=== PATIENT | female | born 1985 | race Caucasian/White ===

== ENCOUNTER → 2016-09-16 | Outpatient (REF) | payer OTHER ==
[~2016-09-16] MED LIST: ACET50TA PO; ADVI200T PO; IBUP60TA PO; MAGN500C PO; PREN27TA3 PO; TYLE167L PO; VALT500T PO
== END ==
LOC: M LAB REF 17:07
PROVIDERS: ATTEND Advanced Practice Midwife
DX: A60.04 Herpesviral vulvovaginitis (principal)

== ENCOUNTER → 2017-01-08 | Outpatient (REF) | payer OTHER, MEDICAID | LOC: M LAB REF 09:00 | PROVIDERS: ATTEND Physician Assistant | DX: N89.8 Other specified noninflammatory disorders of vagina (principal) ==

== ENCOUNTER → 2017-06-09 | Outpatient (CLI) | payer OTHER | LOC: M RAD 13:11 | DX: Z34.81 Encounter for supervision of other normal pregnancy, first trimester (principal); Z3A.01 Less than 8 weeks gestation of pregnancy | CPT/HCPCS: 76801 ==

== ENCOUNTER 2017-07-04 17:44 | Emergency (ER) | payer OTHER, MEDICAID ==
[2017-07-04] MEDS: KETOROLAC TROMETHAMINE 10 MG TAB PO (19:15)
== END 2017-07-04 20:00 | disposition home or self-care (01) ==
LOC: M ED 17:44
DX: S72.491A Other fracture of lower end of right femur, initial encounter for closed fracture (principal); W00.0XXA Fall on same level due to ice and snow, initial encounter; Y92.018 Other place in single-family (private) house as the place of occurrence of the external cause; F41.9 Anxiety disorder, unspecified; F33.9 Major depressive disorder, recurrent, unspecified; F17.210 Nicotine dependence, cigarettes, uncomplicated
CPT/HCPCS: 73610

== ENCOUNTER 2017-07-09 17:59 | Emergency (ER) | payer OTHER, MEDICAID ==
[2017-07-09] MEDS: ONDANSETRON 4 MG ORAL DISINTEGRATING TAB (S0181) PO (20:47)
[2017-07-09] MEDS: HYDROmorphone 2 MG TAB PO (20:47)
== END 2017-07-09 21:45 | disposition home or self-care (01) ==
LOC: M ED 17:59
DX: S82.891A Other fracture of right lower leg, initial encounter for closed fracture (principal); X58.XXXA Exposure to other specified factors, initial encounter; Y92.89 Other specified places as the place of occurrence of the external cause; R11.0 Nausea; F41.9 Anxiety disorder, unspecified; F17.210 Nicotine dependence, cigarettes, uncomplicated
CPT/HCPCS: 99283

== ENCOUNTER 2017-07-15 12:35 | Emergency (ER) | payer OTHER, MEDICAID | END 2017-07-15 14:31 | disposition home or self-care (01) | LOC: M ED 12:35 | DX: F41.0 Panic disorder [episodic paroxysmal anxiety] (principal); F32.9 Major depressive disorder, single episode, unspecified; J30.2 Other seasonal allergic rhinitis; F17.200 Nicotine dependence, unspecified, uncomplicated; Z79.3 Long term (current) use of hormonal contraceptives | CPT/HCPCS: 99282 ==

== ENCOUNTER → 2017-11-07 | Outpatient (CLI) | payer OTHER ==
[2017-11-07 07:45] LABS: BASO % 0.5 % (0.0-1.0); EOS # 0.2 10^3/uL (0.0-0.50); HEMATOCRIT 42.3 % (36.0-47.0); HEMOGLOBIN 14.6 g/dl (12.0-15.5); IMMATURE GRANULOCYTE % 0.4 % (0-3.0); LYMPH # 3.4 10^3/uL (1.5-4.5); LYMPH % 42.2 % (24.0-44.0); MEAN CORPUSCULAR HEMOGLOBIN 31.3 pg (27.0-33.0); MEAN CORPUSCULAR HGB CONC 34.5 g/dl (32.0-36.5); MEAN CORPUSCULAR VOLUME 90.6 fl (80.0-96.0); MONO # 0.5 10^3/uL (0.0-0.8); MONO % 5.9 % (0.0-5.0); NEUTROPHILS # 3.9 10^3/uL (1.8-7.7); PLATELET COUNT, AUTOMATED 190 10^3/uL (150-450); RED BLOOD COUNT 4.67 10^6/uL (4.00-5.40); RED CELL DISTRIBUTION WIDTH 13.1 % (11.5-14.5); WHITE BLOOD COUNT 7.9 10^3/uL (4.0-10.0)
[2017-11-07 08:26] LABS: ALBUMIN 3.6 GM/DL (3.2-5.2); ALBUMIN/GLOBULIN RATIO 1.16 (1.00-1.93); ALKALINE PHOSPHATASE 59 U/L (45-117); ALT/SGPT 20 U/L (12-78); ANION GAP 7 MEQ/L (8-16); AST/SGOT 13 U/L (7-37); BILIRUBIN,TOTAL 0.7 MG/DL (0.2-1.0); BLOOD UREA NITROGEN 9 MG/DL (7-18); CALCIUM LEVEL 9.2 MG/DL (8.5-10.1); CARBON DIOXIDE LEVEL 28 MEQ/L (21-32); CHLORIDE LEVEL 109 MEQ/L (98-107); CHOLESTEROL LEVEL 166 MG/DL (<200); CHOLESTEROL RISK RATIO 4.048 (<5); CREATININE FOR GFR 0.84 MG/DL (0.55-1.30); FREE T4 0.81 NG/DL (0.76-1.46); GLOMERULAR FILTRATION RATE > 60.0 (>60); GLUCOSE, FASTING 93 MG/DL (70-100); HDL CHOLESTEROL 41 MG/DL (>40); NON-HDL-C 125 MG/DL; POTASSIUM SERUM 3.9 MEQ/L (3.5-5.1); SODIUM LEVEL 144 MEQ/L (136-145); TOTAL PROTEIN 6.7 GM/DL (6.4-8.2); TRIGLYCERIDES LEVEL 155 MG/DL (<150)
[2017-11-07 10:39] LABS: TOTAL T3 81.6 NG/DL (60.0-181.0)
[2017-11-07 11:19] LABS: HIV 1&2 SCREEN CENTAUR NEGATIVE (NEGATIVE)
[2017-11-07 11:32] LABS: ESTIMATED AVERAGE GLUCOSE 114 MG/DL (60-110); HEMOGLOBIN A1c 5.6 %
== END ==
LOC: M LAB 07:12
DX: Z13.29 Encounter for screening for other suspected endocrine disorder (principal); Z13.220 Encounter for screening for lipoid disorders; R61 Generalized hyperhidrosis
CPT/HCPCS: 84443

== ENCOUNTER → 2017-11-24 | Outpatient (REF) | payer OTHER, MEDICAID ==
[2017-11-25 11:11] LABS: THYROGLOBULIN ANTIBODY < 15.0 U/ML (<60.0)
[2017-11-25 11:11] LABS: THYROID PEROXIDASE ANTIBODY < 28.0 U/ML (<60.0)
[2017-11-26 09:13] LABS: THYROID STIMULATING IMMUNOGLOB <0.10 IU/L (0.00-0.55)
== END ==
LOC: M LAB REF 13:59
DX: E02 Subclinical iodine-deficiency hypothyroidism (principal)

== ENCOUNTER → 2018-01-11 | Outpatient (CLI) | payer OTHER | LOC: M LAB 06:01 | DX: E02 Subclinical iodine-deficiency hypothyroidism (principal) | CPT/HCPCS: 84443 ==

== ENCOUNTER → 2018-06-12 | Outpatient (REF) | payer OTHER, MEDICAID ==
[~2018-06-12] MED LIST changes: -ACET50TA PO; +DILA2TAB6 PO; +MAPA500T2 PO; +PERC5TAB12 PO; +VICO5TAB16 PO; +bcp's PO
== END ==
LOC: M LAB REF 18:02
PROVIDERS: ATTEND Nurse Practitioner Adult Health
DX: E02 Subclinical iodine-deficiency hypothyroidism (principal)

== ENCOUNTER 2018-06-21 13:03 | Emergency (ER) | payer MEDICAID, OTHER ==
[~2018-06-21] VITALS: Ht 175.3 cm; Wt 85.0 kg
[2018-06-21] MEDS ORDERED: LEVO25TA5 (13:09)
[2018-06-21] MEDS ORDERED: HYDR-3363 (13:09)
[2018-06-21] MEDS ORDERED: [UNRECOGNIZED DRUG - CODE] (13:09)
[2018-06-21] MEDS ORDERED: SERT25TA88 (13:09)
[2018-06-21] MEDS ORDERED: PERCOCET 5MG/325MG TAB PO ONE (13:45)
--- NOTE | 2018-06-21 13:54 | REP ---
Clinical: Trauma/fall. Technique: AP, lateral, bilateral oblique views of the right ankle. Comparison: 07/04/2017. Findings: Healed oblique fracture of the distal fibular metaphysis is identified. Overlying lateral swelling is appreciated. Subtle acute fractures at the base of the second and third metatarsal bones suggested. Impression: Lateral swelling. Old healed distal fibular fracture. Subtle acute fractures at the base of the second and third metatarsal bones cannot be excluded. Electronically Signed by Chava Dodd MD 06/21/2018 01:46 P
[2018-06-21] MEDS ORDERED: PERC5TAB12 PO (15:50)
[2018-06-21 16:02] VITALS: BP 120/60
== END 2018-06-21 16:18 | disposition home or self-care (01) ==
LOC: M ED 13:03
DX: S92.321A Displaced fracture of second metatarsal bone, right foot, initial encounter for closed fracture (principal); S92.331A Displaced fracture of third metatarsal bone, right foot, initial encounter for closed fracture; Z87.81 Personal history of (healed) traumatic fracture; W00.0XXA Fall on same level due to ice and snow, initial encounter; Y92.219 Unspecified school as the place of occurrence of the external cause; F32.9 Major depressive disorder, single episode, unspecified; F41.9 Anxiety disorder, unspecified; F17.210 Nicotine dependence, cigarettes, uncomplicated; J30.1 Allergic rhinitis due to pollen; Z79.899 Other long term (current) drug therapy

== ENCOUNTER 2018-08-07 21:14 | Emergency (ER) | payer OTHER, MEDICAID ==
[~2018-08-07] VITALS: Ht 175.3 cm; Wt 86.4 kg
[2018-08-07 21:14] VITALS: BP 143/75
[~2018-08-07 21:14] MED LIST changes: +HYDR-3363; +LEVO25TA5; +SERT25TA88; +[UNRECOGNIZED DRUG - CODE]
== END 2018-08-07 22:56 | disposition left against medical advice (07) ==
LOC: M ED 21:14
DX: F41.0 Panic disorder [episodic paroxysmal anxiety] (principal); Z53.21 Procedure and treatment not carried out due to patient leaving prior to being seen by health care provider

== ENCOUNTER → 2018-09-05 | Outpatient (REF) | payer OTHER, MEDICAID ==
[~2018-09-05] MED LIST changes: +IBUP600T42 PO; -IBUP60TA PO; -VICO5TAB16 PO; +VICO5TAB17 PO
[2018-09-05 19:57] LABS: ALT/SGPT 14 U/L (12-78); BILIRUBIN,TOTAL 0.4 MG/DL (0.2-1.0); BLOOD UREA NITROGEN 7 MG/DL (7-18); CALCIUM LEVEL 9.1 MG/DL (8.5-10.1); CARBON DIOXIDE LEVEL 26 MEQ/L (21-32); CHLORIDE LEVEL 109 MEQ/L (98-107); CREATININE FOR GFR 0.79 MG/DL (0.55-1.30); GLOMERULAR FILTRATION RATE > 60.0 (>60); GLUCOSE, FASTING 95 MG/DL (70-100); SODIUM LEVEL 140 MEQ/L (136-145)
[2018-09-05 20:05] LABS: TOTAL 25(OH) VITAMIN D 10.5 NG/ML (30.0-100.0)
== END ==
LOC: M LAB REF 17:40
PROVIDERS: ATTEND Nurse Practitioner Adult Health
DX: Z13.9 Encounter for screening, unspecified (principal)

== ENCOUNTER → 2018-11-02 | Outpatient (REF) | payer OTHER, MEDICAID ==
[2018-11-02 18:35] LABS: FREE T4 1.08 NG/DL (0.76-1.46); THYROID STIMULATING HORMONE 2.64 uIU/ML (0.358-3.740)
[2018-11-02 18:36] LABS: TOTAL 25(OH) VITAMIN D 23.6 NG/ML (30.0-100.0)
== END ==
LOC: M LAB REF 17:33
PROVIDERS: ATTEND Nurse Practitioner Adult Health
DX: E02 Subclinical iodine-deficiency hypothyroidism (principal); Z13.9 Encounter for screening, unspecified

== ENCOUNTER → 2019-01-24 | Outpatient (CLI) | payer OTHER ==
[~2019-01-24] MED LIST changes: +SERT25TA21; -SERT25TA88
--- NOTE | 2019-01-24 15:46 | REP ---
FIRST TRIMESTER ULTRASOUND: Real-time sonographic evaluation of the gravid uterus performed utilizing transabdominal technique. There is a single living intrauterine gestation. The estimated gestational age is 6 weeks 6 days based on crown rump length of 9 mm, EDC 09/13/2019. heart rate 133 beats per minute. There is no subchorionic hemorrhage. No maternal adnexal region abnormalities are seen. Electronically Signed by José Miguel Flores MD 01/24/2019 04:06 P
== END ==
LOC: M RAD 14:34
PROVIDERS: ATTEND Nurse Practitioner Family
DX: Z32.01 Encounter for pregnancy test, result positive (principal); Z3A.01 Less than 8 weeks gestation of pregnancy

== ENCOUNTER → 2019-04-15 | Outpatient (REF) | payer OTHER, MEDICAID | LOC: M LAB REF 09:57 | PROVIDERS: ATTEND Physician Assistant Medical | DX: M79.10 Myalgia, unspecified site (principal); R50.9 Fever, unspecified ==

== ENCOUNTER → 2019-04-20 | Outpatient (REF) | payer OTHER, MEDICAID ==
[2019-04-20 17:40] LABS: APPEARANCE, URINE CLOUDY (CLEAR); BACTERIA, URINE AUTO 2+ (NEGATIVE); BILIRUBIN, URINE AUTO NEGATIVE (NEGATIVE); BLOOD, URINE BLOOD 3+ (NEGATIVE); COLOR, URINE YELLOW (YELLOW); GLUCOSE, URINE (UA) AUTO NEGATIVE (NEGATIVE); KETONE, URINE AUTO NEGATIVE (NEGATIVE); LEUKOCYTE ESTERASE, URINE AUTO 3+ (NEGATIVE); NITRITE, URINE AUTO POSITIVE (NEGATIVE); PROTEIN, URINE AUTO 2+ mg/dL (NEGATIVE); RBC, URINE AUTO TNTC /HPF (0-3); SPECIFIC GRAVITY URINE AUTO 1.016 (1.002-1.035); SQUAMOUS EPITHELIAL CELL UR AU 8 /HPF (0-6); UROBILINOGEN, URINE AUTO 0.2 mg/dL (0.0-2.0); WBC, URINE AUTO TNTC /HPF (0-3)
== END ==
LOC: M LAB REF 16:24
PROVIDERS: ATTEND Physician Assistant Medical
DX: N39.0 Urinary tract infection, site not specified (principal)

== ENCOUNTER → 2019-12-11 | Outpatient (REF) | payer OTHER ==
[~2019-12-11] MED LIST changes: +BUSP10TA; +DESO1TAB26; -[UNRECOGNIZED DRUG - CODE]
== END ==
LOC: M LAB REF 10:30
PROVIDERS: ATTEND Physician Assistant Medical
DX: J02.9 Acute pharyngitis, unspecified (principal)

== ENCOUNTER → 2019-12-12 | Outpatient (REF) | payer OTHER | LOC: M LAB REF 21:24 | PROVIDERS: ATTEND Physician Assistant | DX: Z03.818 Encounter for observation for suspected exposure to other biological agents ruled out (principal); Z11.59 Encounter for screening for other viral diseases ==

== ENCOUNTER 2020-02-05 15:55 | Emergency (ER) | payer OTHER ==
[~2020-02-05] VITALS: Ht 175.3 cm; Wt 68.5 kg
[~2020-02-05 15:55] MED LIST changes: -BUSP10TA
[2020-02-05] MEDS ORDERED: BUSP10TA (16:03)
[2020-02-05] MEDS ORDERED: LIDOCAINE W/EPINEPHRINE 1% 20ML VIAL SC ONE (17:45)
[2020-02-05] MEDS ORDERED: ACETAMINOPHEN 500 MG TAB PO ONE (17:45)
[2020-02-05] MEDS ORDERED: ACETAMINOPHEN TAB 650MG DOSE (2X325MG) PO ONE (17:45)
[2020-02-05 18:39] VITALS: BP 137/62
== END 2020-02-05 18:52 | disposition home or self-care (01) ==
LOC: M ED 15:55
DX: S01.81XA Laceration without foreign body of other part of head, initial encounter (principal); W01.10XA Fall on same level from slipping, tripping and stumbling with subsequent striking against unspecified object, initial encounter; Y92.099 Unspecified place in other non-institutional residence as the place of occurrence of the external cause; Y93.89 Activity, other specified; Y99.9 Unspecified external cause status; F17.200 Nicotine dependence, unspecified, uncomplicated; Z79.3 Long term (current) use of hormonal contraceptives; Z79.899 Other long term (current) drug therapy; J30.2 Other seasonal allergic rhinitis

== ENCOUNTER 2020-03-12 11:54 | Emergency (ER) | payer OTHER, SELFPAY ==
[~2020-03-12] VITALS: Ht 175.3 cm; Wt 59.1 kg
[~2020-03-12 11:54] MED LIST changes: +BUSP10TA
[2020-03-12 12:48] LABS: HEMATOCRIT 41.2 % (36.0-47.0); HEMOGLOBIN 13.8 g/dl (12.0-15.5); MEAN CORPUSCULAR HEMOGLOBIN 31.4 pg (27.0-33.0); MEAN CORPUSCULAR HGB CONC 33.5 g/dl (32.0-36.5); MEAN CORPUSCULAR VOLUME 93.6 fl (80.0-96.0); PLATELET COUNT, AUTOMATED 215 10^3/uL (150-450); WHITE BLOOD COUNT 10.3 10^3/uL (4.0-10.0)
[2020-03-12 13:12] LABS: AMPHETAMINES LEVEL URINE NEGATIVE (NEGATIVE); BARBITURATES URINE NEGATIVE (NEGATIVE); BENZODIAZEPINES URINE NEGATIVE (NEGATIVE); CANNABINOIDS URINE POSITIVE (NEGATIVE); COCAINE METABOLITE URINE NEGATIVE (NEGATIVE); METHADONE URINE NEGATIVE (NEGATIVE); OPIATES URINE NEGATIVE (NEGATIVE); PHENCYCLIDINE URINE NEGATIVE (NEGATIVE)
[2020-03-12 13:13] LABS: HCG, SERUM QUALITATIVE NEGATIVE (NEGATIVE)
[2020-03-12 13:15] LABS: ACETAMINOPHEN LEVEL < 2.0 UG/ML (10.0-30.0); ALBUMIN 3.9 GM/DL (3.2-5.2); ALT/SGPT 84 U/L (12-78); BILIRUBIN,DIRECT 0.2 MG/DL (0.0-0.2); BILIRUBIN,TOTAL 0.8 MG/DL (0.2-1.0); BLOOD UREA NITROGEN 12 MG/DL (7-18); CALCIUM LEVEL 9.8 MG/DL (8.5-10.1); CARBON DIOXIDE LEVEL 29 MEQ/L (21-32); CHLORIDE LEVEL 106 MEQ/L (98-107); CREATININE FOR GFR 0.99 MG/DL (0.55-1.30); ETHYL ALCOHOL (ETHANOL) < 0.003 % (0.000-0.010); GLOMERULAR FILTRATION RATE > 60.0 (>60); GLUCOSE, FASTING 109 MG/DL (70-100); POTASSIUM SERUM 3.8 MEQ/L (3.5-5.1); SALICYLATE LEVEL 2.5 MG/DL (5.0-30.0); SODIUM LEVEL 142 MEQ/L (136-145); TOTAL PROTEIN 6.8 GM/DL (6.4-8.2)
[2020-03-12 14:20] VITALS: BP 125/74
== END 2020-03-12 14:21 | disposition home or self-care (01) ==
LOC: M ED 11:54
DX: F60.9 Personality disorder, unspecified (principal); F43.0 Acute stress reaction; F32.9 Major depressive disorder, single episode, unspecified; J30.2 Other seasonal allergic rhinitis; F17.200 Nicotine dependence, unspecified, uncomplicated; Z79.3 Long term (current) use of hormonal contraceptives; Z79.899 Other long term (current) drug therapy
CPT/HCPCS: 80048; 80076; 80307; 84443; 84703; 85027; 99283; G0480

== ENCOUNTER 2020-04-05 12:12 | Emergency (ER) | payer OTHER ==
[~2020-04-05] VITALS: Ht 175.3 cm; Wt 68.0 kg
[2020-04-05] MEDS ORDERED: VIEN1TAB PO (12:34)
[2020-04-05] MEDS ORDERED: IBUPROFEN 800 MG TAB PO ONE (12:45)
--- NOTE | 2020-04-05 13:24 | REP ---
INDICATION: trauma. COMPARISON: None. TECHNIQUE: 4.5 mm contiguous transaxial sections were obtained from the skull base to the cerebral convexities with thin cuts through the posterior fossa without the administration of intravenous contrast. FINDINGS: The ventricles and sulci are consistent with the patient's age. There are no extra-axial fluid collections. There is no mass effect. The deep cerebral white matter is consistent with the patient's age. The orbital and petrous structures, cerebellopontine angles, and posterior fossa are unremarkable. The sella turcica, cavernous, and paracavernous structures are essentially unremarkable. The visualized portions of the paranasal sinuses and mastoid air cells are clear. Images of the skull base show no gross abnormality. IMPRESSION: Essentially unremarkable CT examination of the brain. <Electronically signed by Torsten Frank > 04/05/20 [id number]
--- NOTE | 2020-04-05 13:27 | REP ---
INDICATION: trauma. COMPARISON: 06/14/2011 TECHNIQUE: Axial helical scanning with coronal and sagittal reconstructions. FINDINGS: There is no maxillofacial fracture. The paranasal sinuses are clear. There are bilateral monique bullosa. The cribriform plate and Natalee monica are intact. The ostiomeatal complexes are patent. There is no evidence of abnormal soft tissue swelling. IMPRESSION: No acute abnormality. <Electronically signed by Torsten Frank > 04/05/20 [id number]
--- NOTE | 2020-04-05 13:29 | REP ---
INDICATION: trauma. COMPARISON: None. FINDINGS: Right forearm: No acute fracture or destructive osseous lesion. Left forearm: There is a slightly oblique distal ulnar fracture. IMPRESSION: As above <Electronically signed by Torsten Frank > 04/05/20 [id number]
--- NOTE | 2020-04-05 13:31 | REP ---
INDICATION: trauma. COMPARISON: 05/10/2006 FINDINGS: The joint spaces are symmetric and relatively well maintained. There is no evidence of acute fracture or destructive osseous lesion. IMPRESSION: Negative hand. See the left forearm report. <Electronically signed by Torsten Frank > 04/05/20 [id number]
[2020-04-05] MEDS ORDERED: NORC1TAB7 PO (14:10)
[2020-04-05 14:22] VITALS: BP 119/75
== END 2020-04-05 14:23 | disposition home or self-care (01) ==
LOC: M ED 12:12
DX: S52.602A Unspecified fracture of lower end of left ulna, initial encounter for closed fracture (principal); Z04.81 Encounter for examination and observation of victim following forced sexual exploitation; W22.8XXA Striking against or struck by other objects, initial encounter; Y92.099 Unspecified place in other non-institutional residence as the place of occurrence of the external cause; Y93.9 Activity, unspecified; Y99.9 Unspecified external cause status; F41.9 Anxiety disorder, unspecified; F32.9 Major depressive disorder, single episode, unspecified; J30.1 Allergic rhinitis due to pollen; F17.200 Nicotine dependence, unspecified, uncomplicated; Z79.3 Long term (current) use of hormonal contraceptives; Z79.899 Other long term (current) drug therapy

== ENCOUNTER 2020-06-27 23:21 | Emergency (ER) | payer OTHER ==
[~2020-06-27 23:21] MED LIST changes: +NORC1TAB7 PO; +VIEN1TAB PO
[2020-06-27 23:43] VITALS: BP 129/83
[2020-06-28] MEDS ORDERED: BACITRACIN OINTMENT 30GM TUBE TOP STA (00:55)
[2020-06-28 01:34] LABS: HEMATOCRIT 44.7 % (36.0-47.0); HEMOGLOBIN 14.7 g/dl (12.0-15.5); MEAN CORPUSCULAR HEMOGLOBIN 31.4 pg (27.0-33.0); MEAN CORPUSCULAR HGB CONC 32.9 g/dl (32.0-36.5); MEAN CORPUSCULAR VOLUME 95.5 fl (80.0-96.0); PLATELET COUNT, AUTOMATED 219 10^3/uL (150-450); RED BLOOD COUNT 4.68 10^6/uL (4.00-5.40); WHITE BLOOD COUNT 7.7 10^3/uL (4.0-10.0)
[2020-06-28 02:00] LABS: AMPHETAMINES LEVEL URINE POSITIVE (NEGATIVE); BARBITURATES URINE NEGATIVE (NEGATIVE); BENZODIAZEPINES URINE NEGATIVE (NEGATIVE); CANNABINOIDS URINE NEGATIVE (NEGATIVE); COCAINE METABOLITE URINE NEGATIVE (NEGATIVE); METHADONE URINE NEGATIVE (NEGATIVE); OPIATES URINE NEGATIVE (NEGATIVE); PHENCYCLIDINE URINE NEGATIVE (NEGATIVE)
[2020-06-28 02:05] LABS: ACETAMINOPHEN LEVEL < 2.0 UG/ML (10.0-30.0); ALBUMIN 3.6 GM/DL (3.2-5.2); ALT/SGPT 18 U/L (12-78); BILIRUBIN,DIRECT < 0.1 MG/DL (0.0-0.2); BILIRUBIN,TOTAL 0.4 MG/DL (0.2-1.0); BLOOD UREA NITROGEN 10 MG/DL (7-18); CARBON DIOXIDE LEVEL 32 MEQ/L (21-32); CHLORIDE LEVEL 107 MEQ/L (98-107); CREATININE FOR GFR 0.94 MG/DL (0.55-1.30); ETHYL ALCOHOL (ETHANOL) < 0.003 % (0.000-0.010); GLOMERULAR FILTRATION RATE > 60.0 (>60); GLUCOSE, FASTING 99 MG/DL (70-100); POTASSIUM SERUM 3.9 MEQ/L (3.5-5.1); SALICYLATE LEVEL < 1.7 MG/DL (5.0-30.0); SODIUM LEVEL 144 MEQ/L (136-145); THYROID STIMULATING HORMONE 0.962 uIU/ML (0.358-3.740); TOTAL PROTEIN 6.5 GM/DL (6.4-8.2)
== END 2020-06-28 04:11 | disposition home or self-care (01) ==
LOC: M ED 23:21
DX: F43.0 Acute stress reaction (principal); F32.9 Major depressive disorder, single episode, unspecified; F41.9 Anxiety disorder, unspecified; F17.200 Nicotine dependence, unspecified, uncomplicated; J30.89 Other allergic rhinitis; Z79.3 Long term (current) use of hormonal contraceptives; Z79.899 Other long term (current) drug therapy

== ENCOUNTER 2021-05-14 00:29 | Inpatient (IN) | payer MEDICAID, OTHER ==
[2021-05-14 01:06] LABS: HEMATOCRIT 44.2 % (36.0-47.0); MEAN CORPUSCULAR HEMOGLOBIN 30.9 pg (27.0-33.0); MEAN CORPUSCULAR HGB CONC 33.9 g/dl (32.0-36.5); MEAN CORPUSCULAR VOLUME 91.1 fl (80.0-96.0); PLATELET COUNT, AUTOMATED 282 10^3/uL (150-450); RED BLOOD COUNT 4.85 10^6/uL (4.00-5.40); WHITE BLOOD COUNT 10.2 10^3/uL (4.0-10.0)
[2021-05-14 01:32] LABS: HCG, SERUM QUALITATIVE NEGATIVE (NEGATIVE)
[2021-05-14 01:38] LABS: ACETAMINOPHEN LEVEL < 2.0 UG/ML (10.0-30.0); ALT/SGPT 16 U/L (12-78); BILIRUBIN,DIRECT 0.2 MG/DL (0.0-0.2); BILIRUBIN,TOTAL 0.7 MG/DL (0.2-1.0); BLOOD UREA NITROGEN 7 MG/DL (7-18); CALCIUM LEVEL 9.2 MG/DL (8.5-10.1); CARBON DIOXIDE LEVEL 22 MEQ/L (21-32); CHLORIDE LEVEL 105 MEQ/L (98-107); CREATININE FOR GFR 1.23 MG/DL (0.55-1.30); ETHYL ALCOHOL (ETHANOL) < 0.003 % (0.000-0.010); GLOMERULAR FILTRATION RATE 53.2 (>60); GLUCOSE, FASTING 216 MG/DL (70-100); POTASSIUM SERUM 3.6 MEQ/L (3.5-5.1); SALICYLATE LEVEL 2.1 MG/DL (5.0-30.0); SODIUM LEVEL 139 MEQ/L (136-145); TOTAL PROTEIN 7.3 GM/DL (6.4-8.2)
[2021-05-14 03:58] LABS: AMPHETAMINES LEVEL URINE POSITIVE (NEGATIVE); BARBITURATES URINE NEGATIVE (NEGATIVE); BENZODIAZEPINES URINE NEGATIVE (NEGATIVE); CANNABINOIDS URINE NEGATIVE (NEGATIVE); COCAINE METABOLITE URINE NEGATIVE (NEGATIVE); METHADONE URINE NEGATIVE (NEGATIVE); OPIATES URINE NEGATIVE (NEGATIVE); PHENCYCLIDINE URINE NEGATIVE (NEGATIVE)
[2021-05-14 04:53] LABS: RSV AMPLIFICATION NEGATIVE (NEGATIVE)
[2021-05-14] MEDS ORDERED: LORazepam 1 MG TAB PO STA (06:22)
--- NOTE | 2021-05-14 06:50 | ECGEPIP ---
[facility] - ED Test Date: 2021-05-14 Pat Name: PELON GUTIERREZ Department: Room: - Gender: Female Final Inspector Balance Wheel: SOLE : 1985 Requested By: ALBERTO Pitt PA-C Order Number: [id number] Reading MD: Sherman Carlson Measurements Intervals [place] Rate: 94 P: 70 WV: 120 QRS: 75 QRSD: 92 T: 65 QT: 368 QTc: 460 Interpretive Statements Normal sinus rhythm Electronically Signed on 05-14-2021 6:49:47 EST by Sherman Carlson
[2021-05-14] MEDS ORDERED: busPIRone 10 MG TAB PO ONE (07:50)
[2021-05-14] MEDS ORDERED: HOME MED LIST COMPLETE! XX SCH (11:30)
[2021-05-14] MEDS ORDERED: MOM 30ML SUSPENSION UDC PO PRN (14:10)
[2021-05-14] MEDS ORDERED: OLANZapine 5 MG TAB PO PRN (14:10)
[2021-05-14] MEDS ORDERED: MAALOX 30 ML SUSP *UDC PO PRN (14:10)
[2021-05-14] MEDS ORDERED: ACETAMINOPHEN TAB 650MG DOSE (2X325MG) PO PRN (14:10)
[2021-05-14] MEDS ORDERED: OLANZapine ORAL DISINTEGRATING TAB 5MG PO PRN (19:45)
[2021-05-14] MEDS ORDERED: HALOPERIDOL 5MG/ML VIAL (J1630 PER 1) IM STA (20:54)
[2021-05-14] MEDS ORDERED: diphenhydrAMINE 50MG/ML VIAL (J1200) IM STA (20:54)
[2021-05-14] MEDS ORDERED: LORazepam 2 MG/ML VIAL IM STA (20:54)
[2021-05-14] MEDS ORDERED: diphenhydrAMINE 50MG/ML VIAL (J1200) As Ordered ONE (21:04)
[2021-05-14] MEDS ORDERED: LORazepam 2 MG/ML VIAL As Ordered ONE (21:05)
--- NOTE | 2021-05-14 21:27 | MHIR ---
General Date: May 14, 2021 Time Initiated: 21:15 Restraint Documentation Order/Evaluation FACE TO FACE: [Yes]. PHYSICIAN ASSESSMENT: [Patient verbally aggressive, unreorientable. Patient covid+ and not abiding quaranting, putting other staff and patients at risk]. REASON FOR RESTRAINT: Patient poses imminent danger of harming self or others: [Verbally aggressive, threatening staff]. DE-ESCALATION INTERVENTIONS ATTEMPTED BEFORE USE OF RESTRAINTS: [Verbal reorientation by several different staff members] [MECHANICAL AND/OR CHEMICAL] RESTRAINTS USED: [Both]. LENGTH OF TIME ORDERED IN RESTRAINTS: [240] minutes. WHEN TO DISCONTINUE RESTRAINTS: [When the patient is no longer a threat to themselves or others]. Post evaluation of restraint due in 24 hours. SARWAT FAULKNER May 14, 2021 21:27
[2021-05-14 21:30] VITALS: BP 131/64
[2021-05-15] MEDS: OLANZapine 5 MG TAB PO SCH ×2 (09:00→21:14)
[2021-05-15] MEDS ORDERED: hydrOXYzine 25 MG TAB PO PRN (11:15)
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
--- NOTE | 2021-05-15 11:22 | MHPR ---
General Date: May 15, 2021 Time: 09:50 Post-Restraint Evaluation THE OUTCOME OF THE RESTRAINT: Patient is not longer a danger to herself and other, she is resting EFFECTIVENESS OF THE RESTRAINT: Mechanical and/or chemical: Positive ANY EVIDENCE THAT THE PATIENT WAS AFFECTED EMOTIONALLY: Patient is resting, and does not appear to have any emotional decline due to administration of emergency medications ANY NEED FOR COUNSELING/ASSISTANCE: None, but also patient is unwilling to engaged in any dialogue, exhibits antisocial behaviors CHANGES IN TREATMENT PLAN: None RECOMMENDATIONS FOR FUTURE INCIDENTS: offer of oral medications expeditiously, offer of nutrition and hydration, offer of patient's safety plan with regards to aggression and violent behaviors MARINA THURSTON NP May 15, 2021 11:22
--- NOTE | 2021-05-15 14:57 | HPEPDOC ---
[facility] Medical History & Physical Date of Admission May 14, 2021 Date of Service: May 15, 2021 History and Physical CHIEF COMPLAINT: Psychosis, Covid positive HISTORY OF PRESENT ILLNESS: 36-year-old female with history of anxiety, panic attacks, depression, drug abuse with methamphetamine use, PTSD, self-harm, history of trauma, hallucinations and noncompliance brought in by police and admitted to the inpatient mental health unit due to psychosis. Patient was incidentally found to be positive for coronavirus. She denies any fever chills chest pain pressure tightness palpitations lightheadedness dizziness muscle aches joint pains lower extremity edema nausea vomiting abdominal pain sore throat rhinorrhea nasal congestion ear pain discharge headache loss of taste loss of smell decreased appetite diarrhea, but admits to occasional cough which is nonproductive. Code 25 yesterday due to agitation, and patient is currently medicated. Hospitalist was asked to do a routine medical examination and evaluate for Covid 19 symptoms. PAST MEDICAL HISTORY: anxiety, panic attacks, depression, drug abuse with methamphetamine use, PTSD, self-harm, history of trauma, hallucinations and noncompliance PAST SURGICAL HISTORY: None SOCIAL HISTORY: Full code Single Unemployed Smokes cigarettes Uses meth Social alcohol use FAMILY HISTORY: Mother and father -unknown details. "They have a whole bunch of medical problems." ALLERGIES: Please see below. REVIEW OF SYSTEMS: 10 point review of systems negative aside from positive findings on HPI HOME MEDICATIONS: Please see below. PHYSICAL EXAMINATION: VITAL SIGNS: See below GENERAL APPEARANCE: Sleeping on her left side, arousable, cooperative, lethargic but answers questions appropriately No respiratory distress, speaks in full sentences without use of respiratory accessory muscles or conversational dyspnea No pallor icterus jaundice. Face is symmetric HEENT: Moist mucous membranes no cervical lymphadenopathy CARDIOVASCULAR: S1-S2 regular rate rhythm LUNGS: Clear to auscultation without wheezing or rales air entry is equal ABDOMEN: Positive bowel sounds soft nontender nondistended no rebound or guarding EXTREMITIES: No cyanosis clubbing or pitting edema LABORATORY DATA: See below. MICROBIOLOGY: Please see below. ASSESSMENT: 36-year-old female with history of anxiety, panic attacks, depression, drug abuse with methamphetamine use, PTSD, self-harm, history of trauma, hallucinations and noncompliance brought in by police and admitted to the inpatient mental health unit due to psychosis. Patient was incidentally found to be positive for coronavirus. She denies any fever chills chest pain pressure tightness palpitations lightheadedness dizziness muscle aches joint pains lower extremity edema nausea vomiting abdominal pain sore throat rhinorrhea nasal congestion ear pain discharge headache loss of taste loss of smell decreased appetite diarrhea, but admits to occasional cough which is nonproductive. Code 25 yesterday due to agitation, and patient is currently medicated. Hospitalist was asked to do a routine medical examination and evaluate for Covid 19 symptoms. anxiety, panic attacks, depression, drug abuse with methamphetamine use, PTSD, self-harm, history of trauma, hallucinations and noncompliance -managed by primary psychiatric team COVID-19 positive-I have discussed at length the benefits and risk of monoclonal antibody infusion for coronavirus 19. Patient has declined monoclonal antibody infusion at this time. Patient only has a slight cough without fever chills pleuritic chest pain. Should the patient have fevers of 100.4 and higher, worsening shortness of breath with chest pain cough palpitations, will need to check patient's inflammatory markers,chest x-ray to evaluate for pneumonia, CT chest to rule out pulmonary embolism due to Covid hypercoagulable state, and EKG with cardiac markers to rule out myocarditis or non-ST elevation myocardial infarct. Vital Signs Vital Signs Date Time Temp Pulse Resp B/P (MAP) Pulse Ox O2 Delivery O2 Flow Rate FiO2 05/14/21 23:00 Room Air 05/14/21 21:30 86 18 131/64 98 05/14/21 17:05 98.3 Home Medications No Active Prescriptions or Reported Meds Allergies Coded Allergies: Common Ragweed (Verified Allergy, Unknown, 02/05/20) A-FIB/CHADSVASC A-FIB History Current/History of A-Fib/PAF?: No Current PO Anticoag Therapy: No Age/Risk Factor Scoring CHADSVASC: CHADSVASC Response (Comments) Value Age Risk Factor Age < 65 years old 0 Gender Risk Factor Female 1 Hx of CHF No 0 Hx of HTN No 0 Hx of Stroke/TIA/or VTE No 0 Hx of Diabetes No 0 Hx of Vascular Disease No 0 Total 1 Treatment Treatment ordered: NONE MARIA D AGARWAL MD May 15, 2021 14:49
[2021-05-15 17:22] VITALS: BP 126/70
[2021-05-15] MEDS: traZODone 50 MG TAB PO PRN (21:14)
[2021-05-16 06:45] VITALS: BP 111/57
[2021-05-16 06:57] VITALS: BP 111/57
[2021-05-16] MEDS: OLANZapine 5 MG TAB PO SCH ×2 (09:52→20:58)
[2021-05-16 18:41] VITALS: BP 128/70
[2021-05-16] MEDS: traZODone 50 MG TAB PO PRN (20:58)
[2021-05-17 06:18] VITALS: BP 111/59
[2021-05-17] MEDS: OLANZapine 5 MG TAB PO SCH ×2 (10:02→21:47)
[2021-05-17 15:35] VITALS: BP 130/95
[2021-05-17] MEDS: traZODone 50 MG TAB PO PRN (21:47)
--- NOTE | 2021-05-18 09:20 | MHIPNPDOC ---
[facility] Progress Note Progress Note DATE OF SERVICE: 05/18/21 HISTORY: Patient 36-year-old woman who presents with psychotic and bizarre behavior, currently homeless per collateral from mother. Patient states she feels she is doing well medications and wants to be discharged home. Tried to call for collateral from Father Umair Jay, RANULFO signed, , no answer. Interval: Patient remains concrete on proverb interpretation, is now speaking with treatment team, appears less irritable as had been coded May 14. Patient compliant with medications, not able to attend groups due to contact isolation with Covid positive results and testing. Patient denies acute psychotic symptoms and wants to be discharged home, made aware that safe discharge plan has been working with social work. Patient does endorse using drugs which may have also contributed to her presentation to the hospital. VITAL SIGNS: See below. NEW TEST RESULTS: see below CURRENT MEDICATIONS: See below. MENTAL STATUS EXAMINATION: Patient is a 32-year old female, who is in no acute distress, sitting in a desk, long hair somewhat disheveled, appears stated age Speech: Is intact Language skills are fair Thought processes including: Somewhat concrete, mildly disorganized Thought content: Denies suicidal homicidal ideations abstract reasoning, and computation: Somewhat concrete description of associations: Somewhat concrete Description of abnormal or psychotic thoughts: Denies. Judgment: Fair Insight: Poor Orientation: X3 Recent and remote memory: fair Attention span and concentration: Somewhat decreased based on interview Language:danish Fund of knowledge: Average Mood: "okay" Affect: Blunted, somewhat withdrawn, appropriate DIAGNOSES: Unspecified psychotic disorder, rule out substance-induced psychotic disorder ASSESSMENT: Patient requires further stay for safe discharge planning, response to medications continues to be somewhat concrete and possibly mildly disorganized. If continues to improve may possibly be discharged tomorrow on subsequent days. MANAGEMENT PLAN: Continue medications, if symptoms not improved consider increasing olanzapine. TIME SPENT: 15 minutes. Vital Signs Vital Signs Date Time Temp Pulse Resp B/P (MAP) Pulse Ox O2 Delivery O2 Flow Rate FiO2 05/17/21 15:35 99.0 90 16 130/95 (107) 96 Room Air Laboratory Data 24H Labs Laboratory Tests 2 05/18/21 08:51: Current Medications Current Medications Medications (Trade) Dose Ordered Sig/Kai Route PRN Reason Start Time Stop Time Status Last Admin Dose Admin Acetaminophen (Tylenol Tab) 650 mg Q6HP PRN PO HEADACHE or MILD DISCOMFORT 05/14/21 14:10 Al Hydrox/Mg Hydrox/Simethicone (Mylanta) 30 ml Q4HP PRN PO HEARTBURN/INDIGESTION 05/14/21 14:10 Diphenhydramine HCl (Benadryl) 50 mg STAT STAT IM 05/14/21 20:54 05/15/21 00:53 DC 05/14/21 21:19 Haloperidol (Haldol) 10 mg STAT STAT IM 05/14/21 20:54 05/15/21 00:53 DC 05/14/21 21:18 Home Med (Home Med List Complete!) ASDIRECTED XX 05/14/21 11:30 05/14/21 11:35 DC Hydroxyzine HCl (Atarax) 25 mg Q6HP PRN PO ANXIETY 05/15/21 11:15 Lorazepam (Ativan) 1 mg STAT STAT PO 05/14/21 06:22 05/14/21 06:23 DC 05/14/21 06:22 Lorazepam (Ativan) 2 mg STAT STAT IM 05/14/21 20:54 05/15/21 00:53 DC 05/14/21 21:18 Magnesium Hydroxide (Milk Of Magnesia) 30 ml DAILYPRN PRN PO CONSTIPATION 05/14/21 14:10 Olanzapine (ZyPREXA ZYDIS) 5 mg Q6HP PRN PO AGITATION 05/14/21 19:45 05/14/21 19:59 Olanzapine (ZyPREXA) 5 mg BID PO 05/15/21 09:00 05/17/21 21:47 Olanzapine (ZyPREXA) 5 mg Q6HP PRN PO AGITATION 05/14/21 14:10 Cancel Trazodone HCl (Desyrel) 50 mg QHSP PRN PO INSOMNIA 05/14/21 14:10 05/17/21 21:47 Allergies Coded Allergies: Common Ragweed (Verified Allergy, Unknown, 02/05/20) RIP MANN MD May 18, 2021 09:20
[2021-05-18] MEDS: OLANZapine 5 MG TAB PO SCH ×2 (09:50→21:30)
[2021-05-18 18:27] VITALS: BP 135/87
[2021-05-18] MEDS: traZODone 50 MG TAB PO PRN (21:30)
[2021-05-19 06:44] VITALS: BP 104/61
[2021-05-19 08:11] LABS: CHOLESTEROL RISK RATIO 3.111 (<5)
[2021-05-19] MEDS: OLANZapine 5 MG TAB PO SCH (08:50)
--- NOTE | 2021-05-19 10:40 | MHDSPDOC ---
[facility] Discharge Summary Discharge Summary DATE OF ADMISSION: May 14, 2021 at 14:08 DATE OF DISCHARGE: May 19, 2021 1030 DISCHARGE DIAGNOSES: Unspecified psychotic disorder Methamphetamine use disorder Rule out methamphetamine induced psychotic disorder REASON FOR ADMISSION: Patient is a 36 -year-old single, unemployed, undomiciled female, who was brought to the emergency department by [place] police for delusional and bizarre behaviors. Patient refused to speak with provider today and much of this evaluation is based from the ED report. PER ED REPORT: Pt was brought to the ED by police on a 9.41 after her father called the police & reported that she stole his car. Per police, they located pt at a gas station & pt immediately started yelling repeatedly that she wants to & then took off running. Pt was uncooperative with police & stated that the police beat her up. Once here in the ED pt stated that she is in the witness protection program & that her stepfather is a child molester. When pt was asked to change into hospital clothes she refused, stating "you will have to tie me down & rape me." Pt urinated on the bed & declined a fresh set of sheets & blankets. Pt states that she took her mother's car with her mother's permission because her car ran out of gas. She states that her stepfather followed her to a gas station & they got into an argument in the parking lot because he was upset that she would not give the car back. She states that he called the police & when the police arrived she was afraid because she has had negative interactions with them before. She states that when they caught her they pushed her down & handcuffed her. Pt states that she never told police or anyone else that she wanted to . When asked why she told ED staff that we would have to tie her down & rape her in order for her to change into hospital clothes she states "I was angry & I was just shooting off at the mouth." When asked why she stated that her stepfather is a child molester she states "I have some information about it & I will talk to a paper products supervisor about it. I don't want to discuss it with you." Pt will not state where she got the information from. When asked about why she was talking about the witness protection program pt states that it has to do with her stepfather being a child molester, but refuses to discuss it further. Pt denies both SI & HI. She denies any hx of suicide attempts. Pt reports a hx of cutting x1 in June 2020. Pt denies both AH & VH. However, AH are suspected because at one point pt came out of her room & stated that she could hear voices on the other side of the wall, but staff did not hear any voices. She also told Dr. Rogers that just prior to him entering her room she heard something outside the door, but then acknowledged that there was nothing there. Pt does c/o depressed mood & anxiety. She states that holidays are stressful for her because her children were adopted this past summer. She also reports financial px's because she has no job. Pt states that her concentration, energy levels, sleep, & appetite are good. Pt reports a hx of depression, anxiety, panic d/o, & PTSD with no admissions. She does not currently have OP tx, although states that she was a pt at [facility] up until a couple of months ago & would like to resume services there. Pt denies alcohol use. She reports meth use twice a week & her tox screen was positive for amphetamines. She states she started using meth this past summer. TW spoke to pt's mother, Norah ([phone]), with pt's permission. She states that pt is usually out all night & then sleeps all day. She states that pt "hates everyone" & she was afraid of pt tonight for the first time ever. She states that tonight pt threw a wallet & then also threw a lamp. Pt then drove off in Norah's car without permission, despite pt's own vehicle being at the house. Norah states that over this past summer pt was very paranoid that people were listening to her & recording her through the TV & her cell phone. She covered up the TV with cloths & tape & changed her cell phone number multiple times. She would also think that people were talking about her behind her back. Norah states that pt has not been paranoid since last summer & had seemed better since then, until tonight. TW told Norah that pt made accusations that her stepfather is a child molester & she was surprised by this. She states that pt has known her stepfather since she was 14y/o & has never made any accusations about him before. Norah states that pt cannot return to her house so she is now homeless. TW asked pt if she had ever had thoughts in the past about people recording her & listening to her & she denied this. She also denied covering up the TV. TW informed pt that she cannot return to her mother's house & pt states that she will live in her car in the [place] parking lot & believes that she will be safe there because the parking lot has cameras. TW explained that this is not a safe DC plan & pt states that she needs her tablet so that she can contact some friends to see if she can stay with any of them. Pt became verbally agitated once she was told that the psychiatrist determined that she needs admission. She stated that the police have a listening device in her car. Pt admits that she is paranoid, but states that she does not understand why she needs admission. VITAL SIGNS: See below. CONSULTANTS INVOLVED: See Medical H + P by Hospitalist TREATMENT AND PROGRESS ON THE UNIT: Patient was admitted to the [facility] on a 9.39 legal status was afforded the following treatment modalities: 1) Individual Therapy 2) Group Therapy 3) Medication Management 4) Milieu Therapy 5) Safe Environment HOSPITAL COURSE: Patient was admitted to [facility] on a 9.39 legal status. Patient was admitted to inpatient psychiatry for bizarre, delusional, and paranoid thinking. She was started on Olanzapine 5 mg twice daily. Pt found medications beneficial and tolerated them well. Mood, anxiety, and intrusive thoughts improved with treatment. Pt attended groups daily during stay. Pts symptoms improved with treatment. On day of discharge pt. denied depression, anxiety, insomnia, SI/HI, hallucinations, delusions. Pt was discharged home with follow- up with [facility]. Pt felt safe for discharge. DISCHARGE ASSESSMENT: In today's interview, patient is alert and oriented, pt.s dress is appropriate. Hygiene and grooming is well-kempt. Smiles on approach and is pleasant and engaged in the interview. Denies depression and anxiety. Denies suicidal and homicidal ideation, planning or intent. Denies and is not observed with ron, psychotic symptoms of delusions, bizarre thinking, obsessions, paranoia, ruminations illogical thoughts, flight of ideas or having poor insight and judgement. Reinforced with patient need to abstain from alcohol and drugs. At discharge patient has normal mentation, declines further hospitalization on a voluntary status and meets criteria for discharge today. Patient recalled the reasons for her admissions, she states that after losing her children to foster care and subsequent adoption by the foster family this set a decline in her mood. She became depressed and was using drugs (she did not state what she had been using, she was positive for amphetamines. She s tates that she knows she needs out patient mental health services and feels that she needs outpatient rehab. She is requesting to be discharged today, stating that she needs to "get her life back on track." She made future oriented statements i.e. "I need to find a job and I need to see provider to help me with depression and my substance use." Patient was very conversant, continued to demonstrate that she was stable and at baseline. MENTAL STATUS EXAMINATION ON DISCHARGE: Patient is a 36 -year-old single, unemployed, undomiciled female, who was brought to the emergency department by [place] police for delusional and bizarre behaviors. She is currently alert and oriented, with no deficits in her orientation. Her hygiene and grooming is well kempt, she maintained good eye contact and was pleasant and cooperative in today's interview. Speech: Is fluid, conversant, normal rate, tone and volume Language skills are intact Thought processes including: linear and goal oriented Thought content: denies depression and anxiety. Denies suicidal/homicidal ideation, planning or intent. Abstract reasoning, and computation: fair Description of associations: denies, none observed Description of abnormal or psychotic thoughts: denies, none observed. Judgment: fair Insight: fair Orientation: alert and oriented to person, place, time and situation Recent and remote memory: intact Attention span and concentration: good Language: expansive Fund of knowledge: average Mood: Euthymic Mood Affect: reactive Suicide Risk Assessment: 1) Does the patient wish to be ? No 2) Since your admission, have you had any actual thought of killing yourself? No 3) Since your admission, have you been thinking about how you might do this? No 4) Since your admission, have you had these thoughts and had some intention of acting on them? No 5) Since your admission, have you started to work out or worked out the details of how to kill yourself? No 5A) Do you intent to carry out this plan? No and NA 6) Have you ever done anything, started anything, or prepared to do anything with any intent to ? No 6A) How long since your admission did you do any of these? NA MEDICATIONS ON DISCHARGE: See Medication Reconciliation PLAN/FOLLOWUP ARRANGEMENTS: Up Care Education Label * Mental Health Appt 1 * Mental Health Neli * Established With This Provider No * Therapist HATTIE * Date May 26, 2021 * Time 09:15 * Address of Clinic or Practice [address] [place] [address] * Follow Up Care Education Label * Medical * Additional information DECLINED MEDICAL FOLLOW UP. The amount of time spent in the coordination of care for this patient was approximately 25 minutes. ETOH/Disorder Med Rx ETOH/DRUG DISORDER RX: N/A Vital Signs/I&Os Vital Signs Date Time Temp Pulse Resp B/P (MAP) Pulse Ox O2 Delivery O2 Flow Rate FiO2 05/19/21 06:44 98.6 95 16 104/61 (75) 98 Room Air Laboratory Data Labs 24H Laboratory Tests 2 05/19/21 07:22: Triglycerides Level 101, Total Cholesterol 168, LDL Cholesterol 94, Non-HDL Cholesterol (LDL + VLDL) 114, Total HDL Cholesterol 54, Cholesterol/HDL Ratio 3.111 Medications No Active Prescriptions or Reported Meds Allergies Coded Allergies: Common Ragweed (Verified Allergy, Unknown, 02/05/20) MARINA THURSTON NP May 19, 2021 10:30
--- NOTE | 2021-05-19 13:09 | MHIPN ---
[facility] PROGRESS NOTE DATE: 05/16/2021 VITAL SIGNS: Blood pressure 128/70, pulse 87, temperature 99.3. This is a video assessment. She is aware of it. We are doing this because of the pandemic. She is COVID positive. She is seen in the presence of staff. I am at home. CHIEF COMPLAINT: Says feels okay. SUBJECTIVE: Seen for followup. Indicates feels okay, though vague on this. Says has not been doing much. Does not think that her needs are being attended to, including when she asks for medicines. Says sleep okay, though vague on this. MENTAL STATUS EXAMINATION: Neat, cooperative. She displays no agitation at present. No psychomotor retardation. Coherent for the most part. Affect restricted but reactive. Denies any thoughts of harming herself or anyone else. Does not appear internally preoccupied. No overt delusion elicited, but they may well be just "below the surface." Judgment and insight remain compromised. ASSESSMENT: 1. Unspecified psychotic disorder. 2. Methamphetamine use disorder. 3. 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 PLAN: Continue current care, observations, and would suggest obtaining collateral information. Continue with olanzapine at the current dose, 5 mg twice a day. May need to consider an increase in that eventually. Further recommendations to be made depending on the clinical picture.
--- NOTE | 2021-05-19 15:29 | MHIPN ---
[facility] PROGRESS NOTE DATE: 05/17/2021 VITAL SIGNS: Blood pressure 111/59, pulse 69, temperature 98.3. This is a video assessment. We are doing this because of the pandemic. She is seen in the presence of staff. She is in the inpatient psychiatry unit. I am at home. CHIEF COMPLAINT: Says feels "the same." SUBJECTIVE: Seen for followup. Indicates feels the same as yesterday. On further inquiry says has slept but that she felt tired, possibly a bit drowsy when she woke up today. Had taken the trazodone. Moods are okay. Says decided not to use any methamphetamine anymore. This is, she says, a decision she made on coming in. MENTAL STATUS EXAMINATION: Neat, somewhat guarded but possibly less so than yesterday. No agitation. No psychomotor retardation. Coherent. Answers questions briefly, logically. Affect restricted in range. Denies any suicidal thoughts or intents. No homicidal ideas or intents. No evidence of any psychosis at present, in that she is not internally preoccupied. No overt delusions. Cognition is grossly intact. Judgment and insight compromised, possibly improved. 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 PLAN: Continue current care, observations. She will be seeing the assigned psychiatrist and clinician tomorrow and the rest of the team. Further recommendations to be made depending on the clinical picture.
== END 2021-05-19 12:34 | disposition home or self-care (01) | DRG 751 ==
LOC: M ED 00:29 → M ED INP 14:08 → M PSY 17:58
PROVIDERS: ADMIT Student in an Organized Health Care Education/Training Program; ATTEND Student in an Organized Health Care Education/Training Program
DX: F23 Brief psychotic disorder (principal); F15.950 Other stimulant use, unspecified with stimulant-induced psychotic disorder with delusions; F17.210 Nicotine dependence, cigarettes, uncomplicated

== ENCOUNTER → 2021-06-24 | Outpatient (REF) | payer OTHER ==
[2021-06-24 21:39] LABS: APPEARANCE, URINE CLOUDY (CLEAR); BACTERIA, URINE AUTO 1+ (NEGATIVE); BILIRUBIN, URINE AUTO NEGATIVE (NEGATIVE); BLOOD, URINE BLOOD 1+ (NEGATIVE); COLOR, URINE YELLOW (YELLOW); GLUCOSE, URINE (UA) AUTO NEGATIVE (NEGATIVE); KETONE, URINE AUTO TRACE mg/dL (NEGATIVE); LEUKOCYTE ESTERASE, URINE AUTO 1+ (NEGATIVE); MUCUS, URINE LARGE (NEGATIVE); NITRITE, URINE AUTO POSITIVE (NEGATIVE); PROTEIN, URINE AUTO 1+ mg/dL (NEGATIVE); RBC, URINE AUTO 18 /HPF (0-3); SPECIFIC GRAVITY URINE AUTO 1.026 (1.002-1.035); SQUAMOUS EPITHELIAL CELL UR AU 3 /HPF (0-6); WBC, URINE AUTO 23 /HPF (0-3)
[2021-06-24 22:58] LABS: GC DNA AMPLIFICATION NEGATIVE (NEGATIVE)
== END ==
LOC: M LAB REF 21:17
PROVIDERS: ATTEND Physician Assistant
DX: Z11.3 Encounter for screening for infections with a predominantly sexual mode of transmission (principal)

== ENCOUNTER 2022-02-20 10:17 | Inpatient (IN) | payer OTHER ==
[2022-02-20] VITALS (9 sets, daily range): BP systolic 99–119; BP diastolic 55–63
[~2022-02-20] VITALS: Ht 172.7 cm; Wt 80.0 kg
[2022-02-20] MEDS ORDERED: NALOXONE 2MG/2ML SYRINGE (J2310 PER 1MG) IV STA ×3 (10:44→12:05)
[2022-02-20] MEDS ORDERED: NS 1,000 ML IV ONE (11:05)
[2022-02-20 11:17] LABS: BASO # 0.1 10^3/uL (0.0-0.2); BASO % 0.8 % (0.0-1.0); EOS # 0.1 10^3/uL (0.0-0.5); EOS % 1.6 % (0.0-3.0); HEMATOCRIT 40.5 % (36.0-47.0); HEMOGLOBIN 12.7 g/dl (12.0-15.5); LYMPH # 1.4 10^3/uL (1.5-5.0); LYMPH % 23.1 % (24.0-44.0); MEAN CORPUSCULAR HEMOGLOBIN 30.7 pg (27.0-33.0); MEAN CORPUSCULAR HGB CONC 31.4 g/dl (32.0-36.5); MEAN CORPUSCULAR VOLUME 97.8 fl (80.0-96.0); MONO # 0.2 10^3/uL (0.0-0.8); MONO % 2.9 % (2.0-8.0); NEUTROPHILS # 4.3 10^3/uL (1.5-8.5); PLATELET COUNT, AUTOMATED 224 10^3/uL (150-450); RED BLOOD COUNT 4.14 10^6/uL (4.00-5.40); WHITE BLOOD COUNT 6.1 10^3/uL (4.0-10.0)
[2022-02-20] MEDS ORDERED: NALOXONE INJ 0.4MG/1ML VIAL (J2310 PER 1MG) IV STA (11:28)
[2022-02-20 11:52] LABS: RSV AMPLIFICATION NEGATIVE (NEGATIVE)
[2022-02-20 12:10] LABS: ACETAMINOPHEN LEVEL < 2.0 UG/ML (10.0-30.0); ALBUMIN 3.4 GM/DL (3.2-5.2); ALT/SGPT 195 U/L (12-78); BILIRUBIN,DIRECT 0.2 MG/DL (0.0-0.2); BILIRUBIN,TOTAL 0.4 MG/DL (0.2-1.0); BLOOD UREA NITROGEN 13 MG/DL (7-18); CARBON DIOXIDE LEVEL 23 MEQ/L (21-32); CHLORIDE LEVEL 100 MEQ/L (98-107); CREATININE FOR GFR 1.59 MG/DL (0.55-1.30); ETHYL ALCOHOL (ETHANOL) < 0.003 % (0.000-0.010); GLOMERULAR FILTRATION RATE 39.6 (>60); GLUCOSE, FASTING 455 MG/DL (70-100); POTASSIUM SERUM 4.4 MEQ/L (3.5-5.1); SALICYLATE LEVEL 2.2 MG/DL (5.0-30.0); SODIUM LEVEL 136 MEQ/L (136-145); TOTAL PROTEIN 6.8 GM/DL (6.4-8.2)
[2022-02-20 12:30] LABS: AMPHETAMINES LEVEL URINE POSITIVE (NEGATIVE); BARBITURATES URINE NEGATIVE (NEGATIVE)
[2022-02-20 12:31] LABS: BENZODIAZEPINES URINE NEGATIVE (NEGATIVE); CANNABINOIDS URINE NEGATIVE (NEGATIVE); COCAINE METABOLITE URINE NEGATIVE (NEGATIVE); METHADONE URINE NEGATIVE (NEGATIVE); OPIATES URINE NEGATIVE (NEGATIVE); PHENCYCLIDINE URINE NEGATIVE (NEGATIVE)
[2022-02-20 12:39] LABS: HEMOGLOBIN A1c 5.2 %
[2022-02-20] MEDS: NALOXONE HCL INJ 4 MG in D5W 496 ML IV SCH ×2 (12:48→15:00)
[2022-02-20] MEDS ORDERED: HOME MED LIST COMPLETE! XX SCH (13:50)
[2022-02-20] MEDS: LR 1,000 ML IV SCH (16:11)
[2022-02-20] MEDS: HEPARIN SOD (PORCINE) 5000UNITS/ML 1ML VIAL/SYRINGE SC SCH ×2 (16:26→22:00)
[2022-02-20] MEDS: NALOXONE HCL IV SCH ×2 (16:57→21:02)
[2022-02-20] MEDS: NS IV SCH ×2 (16:57→21:02)
[2022-02-20 20:02] LABS: ALBUMIN 2.7 GM/DL (3.2-5.2); ALT/SGPT 147 U/L (12-78); BILIRUBIN,TOTAL 0.2 MG/DL (0.2-1.0); BLOOD UREA NITROGEN 12 MG/DL (7-18); CALCIUM LEVEL 8.2 MG/DL (8.5-10.1); CARBON DIOXIDE LEVEL 23 MEQ/L (21-32); CHLORIDE LEVEL 113 MEQ/L (98-107); CREATININE FOR GFR 0.82 MG/DL (0.55-1.30); GLOMERULAR FILTRATION RATE > 60.0 (>60); GLUCOSE, FASTING 82 MG/DL (70-100); MAGNESIUM LEVEL 2.1 MG/DL (1.8-2.4); POTASSIUM SERUM 4.3 MEQ/L (3.5-5.1); SODIUM LEVEL 140 MEQ/L (136-145); TOTAL PROTEIN 5.6 GM/DL (6.4-8.2)
[2022-02-20] MEDS ORDERED: PILL CUTTER 1 EACH XX ONE (21:06)
[2022-02-21] VITALS (7 sets, daily range): BP systolic 95–133; BP diastolic 54–76
[2022-02-21] MEDS: NALOXONE HCL IV SCH ×2 (00:44→04:33)
[2022-02-21] MEDS: NS IV SCH ×2 (00:44→04:33)
[2022-02-21] MEDS: LR 1,000 ML IV SCH (04:32)
[2022-02-21] MEDS: HEPARIN SOD (PORCINE) 5000UNITS/ML 1ML VIAL/SYRINGE SC SCH (05:31)
[2022-02-21 05:41] LABS: HEMATOCRIT 32.8 % (36.0-47.0); MEAN CORPUSCULAR HEMOGLOBIN 30.9 pg (27.0-33.0); MEAN CORPUSCULAR HGB CONC 31.4 g/dl (32.0-36.5); MEAN CORPUSCULAR VOLUME 98.5 fl (80.0-96.0); PLATELET COUNT, AUTOMATED 141 10^3/uL (150-450); RED BLOOD COUNT 3.33 10^6/uL (4.00-5.40); WHITE BLOOD COUNT 6.3 10^3/uL (4.0-10.0)
[2022-02-21 05:46] LABS: HEMOGLOBIN 10.3 g/dl (12.0-15.5)
[2022-02-21 10:41] LABS: ALBUMIN 2.5 GM/DL (3.2-5.2); ALT/SGPT 113 U/L (12-78); BILIRUBIN,TOTAL 0.2 MG/DL (0.2-1.0); BLOOD UREA NITROGEN 7 MG/DL (7-18); CALCIUM LEVEL 8.1 MG/DL (8.5-10.1); CARBON DIOXIDE LEVEL 26 MEQ/L (21-32); CHLORIDE LEVEL 113 MEQ/L (98-107); CREATININE FOR GFR 0.69 MG/DL (0.55-1.30); GLOMERULAR FILTRATION RATE > 60.0 (>60); GLUCOSE, FASTING 87 MG/DL (70-100); POTASSIUM SERUM 3.9 MEQ/L (3.5-5.1); SODIUM LEVEL 143 MEQ/L (136-145); TOTAL PROTEIN 5.1 GM/DL (6.4-8.2)
[2022-02-22 10:17] LABS: HEPATITIS C VIRUS ABY INDEX < 0.0 INDEX (<0.8)
== END 2022-02-21 08:50 | disposition left against medical advice (07) | DRG 816 ==
LOC: M ED 10:17 → EDBD 10:17 → M ED INP 13:32 → ENRESERV 14:47 → M ICU 16:32
PROVIDERS: ADMIT Internal Medicine Pulmonary Disease; ATTEND Internal Medicine Pulmonary Disease
DX: T40.1X1A Poisoning by heroin, accidental (unintentional), initial encounter (principal); J96.00 Acute respiratory failure, unspecified whether with hypoxia or hypercapnia; G92.8 Other toxic encephalopathy; N17.9 Acute kidney failure, unspecified; F11.90 Opioid use, unspecified, uncomplicated; F41.9 Anxiety disorder, unspecified; F32.A Depression, unspecified; F43.10 Post-traumatic stress disorder, unspecified; F17.210 Nicotine dependence, cigarettes, uncomplicated; Z91.52 Personal history of nonsuicidal self-harm; T43.621A Poisoning by amphetamines, accidental (unintentional), initial encounter; Z20.822 Contact with and (suspected) exposure to COVID-19; Z91.199 Patient's noncompliance with other medical treatment and regimen due to unspecified reason

== ENCOUNTER → 2022-09-24 | Outpatient (REF) | payer OTHER ==
[2022-09-24 19:02] LABS: URINE PREG TEST NEGATIVE (NEGATIVE)
[2022-09-24 19:09] LABS: APPEARANCE, URINE CLOUDY (CLEAR); BACTERIA, URINE AUTO 3+ (NEGATIVE); BILIRUBIN, URINE AUTO NEGATIVE (NEGATIVE); BLOOD, URINE BLOOD 1+ (NEGATIVE); CALCIUM OXALATE CRYSTALS LARGE; COLOR, URINE AMBER (YELLOW); GLUCOSE, URINE (UA) AUTO NEGATIVE (NEGATIVE); KETONE, URINE AUTO TRACE mg/dL (NEGATIVE); LEUKOCYTE ESTERASE, URINE AUTO 2+ (NEGATIVE); MUCUS, URINE SMALL (NEGATIVE); NITRITE, URINE AUTO POSITIVE (NEGATIVE); PROTEIN, URINE AUTO 1+ mg/dL (NEGATIVE); RBC, URINE AUTO 8 /HPF (0-3); SPECIFIC GRAVITY URINE AUTO 1.026 (1.002-1.035); SQUAMOUS EPITHELIAL CELL UR AU 5 /HPF (0-6); WBC, URINE AUTO 13 /HPF (0-3)
[2022-09-24 21:11] LABS: GC DNA AMPLIFICATION POSITIVE (NEGATIVE)
== END ==
LOC: M LAB REF 18:31
PROVIDERS: ATTEND Physician Assistant
DX: Z20.2 Contact with and (suspected) exposure to infections with a predominantly sexual mode of transmission (principal)

== ENCOUNTER 2023-01-22 21:08 | Emergency (ER) | payer MEDICAID, OTHER, SELFPAY ==
[~2023-01-22] VITALS: Ht 175.3 cm; Wt 81.3 kg
[2023-01-22 21:10] VITALS: BP 111/69; TEMP 97.9; O2SAT 98
== END 2023-01-23 01:09 | disposition left against medical advice (07) ==
LOC: M ED 21:08
DX: Z53.21 Procedure and treatment not carried out due to patient leaving prior to being seen by health care provider (principal)

== ENCOUNTER → 2023-01-28 | Outpatient (REF) | payer OTHER ==
[2023-01-28 13:40] LABS: BASO # 0.1 10^3/uL (0.0-0.2); BASO % 0.6 % (0.0-1.0); EOS # 0.1 10^3/uL (0.0-0.5); EOS % 0.9 % (0.0-3.0); HEMATOCRIT 43.6 % (36.0-47.0); HEMOGLOBIN 14.2 g/dl (12.0-15.5); LYMPH # 2.7 10^3/uL (1.5-5.0); LYMPH % 25.3 % (24.0-44.0); MEAN CORPUSCULAR HEMOGLOBIN 31.5 pg (27.0-33.0); MEAN CORPUSCULAR HGB CONC 32.6 g/dl (32.0-36.5); MEAN CORPUSCULAR VOLUME 96.7 fl (80.0-96.0); MONO # 0.7 10^3/uL (0.0-0.8); MONO % 6.6 % (2.0-8.0); NEUTROPHILS # 6.9 10^3/uL (1.5-8.5); NEUTROPHILS % 65.4 % (36.0-66.0); PLATELET COUNT, AUTOMATED 264 10^3/uL (150-450); RED BLOOD COUNT 4.51 10^6/uL (4.00-5.40); WHITE BLOOD COUNT 10.5 10^3/uL (4.0-10.0)
[2023-01-28 14:10] LABS: HEMOGLOBIN A1c 5.1 % (4.0-6.0)
[2023-01-28 14:11] LABS: ALBUMIN 3.9 G/DL (3.2-5.2); ALKALINE PHOSPHATASE 75 U/L (46-116); ALT/SGPT 67 U/L (7.0-40); AST/SGOT 33 U/L (<34); BILIRUBIN,TOTAL 0.4 MG/DL (0.3-1.2); BLOOD UREA NITROGEN 10 MG/DL (9-23); CALCIUM LEVEL 9.1 MG/DL (8.5-10.1); CARBON DIOXIDE LEVEL 31 MMOL/L (20-31); CHLORIDE LEVEL 103 MMOL/L (98-107); CHOLESTEROL LEVEL 217 MG/DL (<200); CHOLESTEROL RISK RATIO 3.51 (<5); CREATININE FOR GFR 0.79 MG/DL (0.55-1.30); GLOMERULAR FILTRATION RATE > 60.0 (>60); GLUCOSE, FASTING 86 MG/DL (60-100); HDL CHOLESTEROL 61.7 MG/DL (>40); LDL CHOLESTEROL 122.5 MG/DL (<100); NON-HDL-C 155.3 MG/DL; POTASSIUM SERUM 3.8 MMOL/L (3.5-5.1); SODIUM LEVEL 138 MMOL/L (136-145); THYROID STIMULATING HORMONE 1.904 uIU/ML (0.55-4.78); TOTAL 25(OH) VITAMIN D 24.5 NG/ML (20.0-100.0); TOTAL PROTEIN 7.9 G/DL (5.7-8.2); TRIGLYCERIDES LEVEL 164 MG/DL (<150)
[2023-01-28 15:02] LABS: HEPATITIS C VIRUS ABY INDEX > 11.00 INDEX (<0.8)
[2023-01-30 07:55] LABS: HEPATITIS B SURFACE ANTIBODY POSITIVE (POSITIVE)
[2023-02-01 00:07] LABS: HEPATITIS B CORE ANTIBODY IGG Negative (Negative)
== END ==
LOC: M LAB REF 11:46
PROVIDERS: ATTEND Nurse Practitioner Family
DX: E66.3 Overweight (principal); E55.9 Vitamin D deficiency, unspecified; Z11.9 Encounter for screening for infectious and parasitic diseases, unspecified; R53.83 Other fatigue; B19.20 Unspecified viral hepatitis C without hepatic coma

== ENCOUNTER 2023-05-31 16:46 | Emergency (ER) | payer OTHER ==
[~2023-05-31] VITALS: Ht 172.7 cm; Wt 86.0 kg
[2023-05-31] MEDS ORDERED: CLIN150C17 PO (17:08)
[2023-05-31 18:10] LABS: HEMATOCRIT 39.7 % (36.0-47.0); MEAN CORPUSCULAR HEMOGLOBIN 31.2 pg (27.0-33.0); MEAN CORPUSCULAR HGB CONC 32.7 g/dl (32.0-36.5); MEAN CORPUSCULAR VOLUME 95.2 fl (80.0-96.0); PLATELET COUNT, AUTOMATED 240 10^3/uL (150-450); RED BLOOD COUNT 4.17 10^6/uL (4.00-5.40); WHITE BLOOD COUNT 4.8 10^3/uL (4.0-10.0)
[2023-05-31] MEDS ORDERED: MED REC IN PROGRESS XX SCH (18:30)
[2023-05-31] MEDS ORDERED: ZOLO50TA PO (18:32)
[2023-05-31 18:35] LABS: AMPHETAMINES LEVEL URINE NEGATIVE (NEGATIVE); BARBITURATES URINE NEGATIVE (NEGATIVE); BENZODIAZEPINES URINE NEGATIVE (NEGATIVE); CANNABINOIDS URINE NEGATIVE (NEGATIVE); COCAINE METABOLITE URINE NEGATIVE (NEGATIVE); ETHYL ALCOHOL (ETHANOL) 0.006 % (0.000-0.010); METHADONE URINE NEGATIVE (NEGATIVE); OPIATES URINE NEGATIVE (NEGATIVE); PHENCYCLIDINE URINE NEGATIVE (NEGATIVE)
[2023-05-31 18:36] LABS: HCG, SERUM QUALITATIVE NEGATIVE (NEGATIVE)
[2023-05-31] MEDS ORDERED: HYDR50TA70 PO (18:36)
[2023-05-31 18:37] LABS: ALBUMIN 3.6 G/DL (3.2-5.2); ALKALINE PHOSPHATASE 51 U/L (46-116); ALT/SGPT 45 U/L (7.0-40); AST/SGOT 33 U/L (<34); BILIRUBIN,DIRECT 0.1 MG/DL (<0.4); BILIRUBIN,TOTAL 0.3 MG/DL (0.3-1.2); BLOOD UREA NITROGEN 15 MG/DL (9-23); CALCIUM LEVEL 9.2 MG/DL (8.5-10.1); CARBON DIOXIDE LEVEL 28 MMOL/L (20-31); CHLORIDE LEVEL 106 MMOL/L (98-107); CREATININE FOR GFR 0.83 MG/DL (0.55-1.30); GLOMERULAR FILTRATION RATE > 60.0 (>60); GLUCOSE, FASTING 98 MG/DL (60-100); POTASSIUM SERUM 4.5 MMOL/L (3.5-5.1); SALICYLATE LEVEL < 3.0 MG/DL (<30); SODIUM LEVEL 138 MMOL/L (136-145); TOTAL PROTEIN 6.9 G/DL (5.7-8.2)
[2023-05-31] MEDS ORDERED: ACET-907 PO (18:38)
[2023-05-31] MEDS ORDERED: IBUP200T46 PO (18:39)
[2023-05-31 18:40] LABS: THYROID STIMULATING HORMONE 1.588 uIU/ML (0.55-4.78)
[2023-05-31] MEDS ORDERED: HOME MED LIST COMPLETE! XX SCH (18:50)
[2023-05-31] MEDS: CLINDAMYCIN 150MG CAPSULE PO SCH (22:34)
[2023-06-01] MEDS: CLINDAMYCIN 150MG CAPSULE PO SCH (09:47)
[2023-06-01 11:05] VITALS: BP 123/58; TEMP 97.4; O2SAT 98
== END 2023-06-01 11:08 | disposition home or self-care (01) ==
LOC: M ED 16:46
DX: F43.20 Adjustment disorder, unspecified (principal); F41.9 Anxiety disorder, unspecified; F32.A Depression, unspecified; B18.2 Chronic viral hepatitis C; Z79.899 Other long term (current) drug therapy; Z79.52 Long term (current) use of systemic steroids; Z79.1 Long term (current) use of non-steroidal anti-inflammatories (NSAID)

== ENCOUNTER 2023-06-04 03:51 | Emergency (ER) | payer OTHER ==
[~2023-06-04] VITALS: Ht 175.3 cm; Wt 81.8 kg
[~2023-06-04 03:51] MED LIST changes: +ACET-907 PO; +CLIN150C17 PO; +HYDR50TA70 PO; +IBUP200T46 PO; +ZOLO50TA PO
[2023-06-04 03:54] VITALS: BP 131/90; TEMP 97.9; O2SAT 97
[2023-06-04 04:32] LABS: APPEARANCE, URINE HAZY (CLEAR); BACTERIA, URINE AUTO NEGATIVE (NEGATIVE); BILIRUBIN, URINE AUTO NEGATIVE (NEGATIVE); BLOOD, URINE BLOOD 1+ (NEGATIVE); COLOR, URINE YELLOW (YELLOW); GLUCOSE, URINE (UA) AUTO NEGATIVE (NEGATIVE); KETONE, URINE AUTO NEGATIVE (NEGATIVE); LEUKOCYTE ESTERASE, URINE AUTO TRACE (NEGATIVE); NITRITE, URINE AUTO NEGATIVE (NEGATIVE); PROTEIN, URINE AUTO NEGATIVE (NEGATIVE); RBC, URINE AUTO 6 /HPF (0-3); SPECIFIC GRAVITY URINE AUTO 1.012 (1.002-1.035); SQUAMOUS EPITHELIAL CELL UR AU 10 /HPF (0-6); UROBILINOGEN, URINE AUTO 0.2 mg/dL (0.0-2.0); WBC, URINE AUTO 2 /HPF (0-3)
[2023-06-04 05:01] LABS: HCG, SERUM QUANTITATIVE < 2.6 MIU/ML (<4.2)
[2023-06-04 05:07] LABS: HCG, SERUM QUALITATIVE NEGATIVE (NEGATIVE)
== END 2023-06-04 05:54 | disposition left against medical advice (07) ==
LOC: M ED 03:51
DX: Z53.21 Procedure and treatment not carried out due to patient leaving prior to being seen by health care provider (principal)

== ENCOUNTER 2023-06-08 20:11 | Emergency (ER) | payer OTHER ==
[~2023-06-08] VITALS: Ht 175.3 cm; Wt 86.4 kg
[2023-06-08] MEDS ORDERED: ACETAMINOPHEN TAB 650MG DOSE (2X325MG) PO ONE (22:15)
[2023-06-08 22:27] VITALS: BP 133/80; TEMP 97.2; O2SAT 100
== END 2023-06-08 22:30 | disposition home or self-care (01) ==
LOC: M ED 20:11
DX: H92.02 Otalgia, left ear (principal); F43.10 Post-traumatic stress disorder, unspecified; Z91.048 Other nonmedicinal substance allergy status; Z79.1 Long term (current) use of non-steroidal anti-inflammatories (NSAID); Z79.899 Other long term (current) drug therapy

== ENCOUNTER 2023-07-20 21:28 | Emergency (ER) | payer OTHER ==
[2023-07-20 21:28] VITALS: BP 146/90; TEMP 98.6; O2SAT 98
== END 2023-07-20 23:55 | disposition left against medical advice (07) ==
LOC: M ED 21:28
DX: Z53.21 Procedure and treatment not carried out due to patient leaving prior to being seen by health care provider (principal)

== ENCOUNTER 2023-09-06 02:33 | Emergency (ER) | payer OTHER ==
[~2023-09-06] VITALS: Ht 175.3 cm; Wt 85.0 kg
[2023-09-06 06:20] LABS: HEMATOCRIT 38.5 % (36.0-47.0); HEMOGLOBIN 12.8 g/dl (12.0-15.5); MEAN CORPUSCULAR HEMOGLOBIN 30.9 pg (27.0-33.0); MEAN CORPUSCULAR HGB CONC 33.2 g/dl (32.0-36.5); PLATELET COUNT, AUTOMATED 214 10^3/uL (150-450); RED BLOOD COUNT 4.14 10^6/uL (4.00-5.40); WHITE BLOOD COUNT 8.7 10^3/uL (4.0-10.0)
[2023-09-06 06:41] LABS: ALBUMIN 3.1 G/DL (3.2-5.2); ALKALINE PHOSPHATASE 55 U/L (46-116); ALT/SGPT 37 U/L (7.0-40); AST/SGOT 24 U/L (<34); BILIRUBIN,DIRECT 0.1 MG/DL (<0.4); BILIRUBIN,TOTAL 0.3 MG/DL (0.3-1.2); BLOOD UREA NITROGEN 16 MG/DL (9-23); CALCIUM LEVEL 9.5 MG/DL (8.5-10.1); CARBON DIOXIDE LEVEL 29 MMOL/L (20-31); CHLORIDE LEVEL 109 MMOL/L (98-107); CREATININE FOR GFR 0.76 MG/DL (0.55-1.30); GLOMERULAR FILTRATION RATE > 60.0 (>60); GLUCOSE, FASTING 104 MG/DL (60-100); POTASSIUM SERUM 3.3 MMOL/L (3.5-5.1); SALICYLATE LEVEL < 3.0 MG/DL (<30); SODIUM LEVEL 142 MMOL/L (136-145); TOTAL PROTEIN 6.1 G/DL (5.7-8.2)
[2023-09-06 06:43] LABS: ETHYL ALCOHOL (ETHANOL) < 0.003 % (0.000-0.010); THYROID STIMULATING HORMONE 0.765 uIU/ML (0.55-4.78)
[2023-09-06] MEDS ORDERED: MED REC IN PROGRESS XX SCH (07:30)
[2023-09-06] MEDS: SERTRALINE HCL 50 MG TAB PO SCH (07:33)
[2023-09-06 07:34] VITALS: BP 133/67; TEMP 97.8; O2SAT 98
[2023-09-06] MEDS ORDERED: MED REC CURRENTLY UNOBTAINABLE XX SCH (09:05)
[2023-09-06 10:38] LABS: BARBITURATES URINE NEGATIVE (NEGATIVE); BENZODIAZEPINES URINE NEGATIVE (NEGATIVE)
[2023-09-06 10:39] LABS: METHADONE URINE NEGATIVE (NEGATIVE); OPIATES URINE NEGATIVE (NEGATIVE); PHENCYCLIDINE URINE NEGATIVE (NEGATIVE)
[2023-09-06 10:42] LABS: AMPHETAMINES LEVEL URINE POSITIVE (NEGATIVE); CANNABINOIDS URINE POSITIVE (NEGATIVE); COCAINE METABOLITE URINE POSITIVE (NEGATIVE)
[2023-09-06] MEDS ORDERED: HOME MED LIST COMPLETE! XX SCH (11:05)
== END 2023-09-06 13:31 | disposition home or self-care (01) ==
LOC: M ED 02:33
DX: F32.A Depression, unspecified (principal); F19.10 Other psychoactive substance abuse, uncomplicated; F41.9 Anxiety disorder, unspecified; Z59.00 Homelessness unspecified

== ENCOUNTER 2024-03-04 07:02 | Emergency (ER) | payer OTHER ==
[~2024-03-04] VITALS: Ht 175.3 cm; Wt 88.0 kg
[2024-03-04 07:06] VITALS: BP 127/72; TEMP 96.9; O2SAT 95
== END 2024-03-04 07:55 | disposition home or self-care (01) ==
LOC: M ED 07:02
DX: N92.0 Excessive and frequent menstruation with regular cycle (principal); F43.10 Post-traumatic stress disorder, unspecified; J30.89 Other allergic rhinitis; Z86.19 Personal history of other infectious and parasitic diseases

== ENCOUNTER 2024-03-21 16:30 | Emergency (ER) | payer OTHER ==
[~2024-03-21] VITALS: Ht 177.8 cm; Wt 85.5 kg
== END 2024-03-21 16:36 | disposition left against medical advice (07) ==
LOC: M ED 16:30
DX: Z53.21 Procedure and treatment not carried out due to patient leaving prior to being seen by health care provider (principal)

== ENCOUNTER 2024-04-16 09:25 | Emergency (ER) | payer OTHER | END 2024-04-16 09:32 | disposition left against medical advice (07) | LOC: M ED 09:25 | DX: Z53.21 Procedure and treatment not carried out due to patient leaving prior to being seen by health care provider (principal) ==

== ENCOUNTER 2024-08-24 23:31 | Emergency (ER) | payer OTHER ==
[~2024-08-24] VITALS: Ht 175.3 cm; Wt 100.0 kg
[~2024-08-24 23:31] MED LIST changes: -DESO1TAB26; +DESO1TAB38
[2024-08-25] MEDS: PERCOCET 5MG/325MG TAB PO ONE (00:36)
[2024-08-25] MEDS: LIDOCAINE 2% MDV 20ML VIAL SC ONE (04:21)
[2024-08-25 06:00] VITALS: BP 108/64
[2024-08-25 06:15] VITALS: O2SAT 95
[2024-08-25] MEDS: BOOSTRIX VACCINE (TETANUS/DIPHTH/ACEL. PERTUSSIS) 0.5ML SYR IM.IMMUN ONE (06:30)
== END 2024-08-25 06:40 | disposition home or self-care (01) ==
LOC: M ED 23:31
DX: S60.221A Contusion of right hand, initial encounter (principal); S01.111A Laceration without foreign body of right eyelid and periocular area, initial encounter; F10.129 Alcohol abuse with intoxication, unspecified; Y04.0XXA Assault by unarmed brawl or fight, initial encounter; J47.9 Bronchiectasis, uncomplicated; F19.10 Other psychoactive substance abuse, uncomplicated; F10.10 Alcohol abuse, uncomplicated; Z91.048 Other nonmedicinal substance allergy status; Z23 Encounter for immunization; Y92.410 Unspecified street and highway as the place of occurrence of the external cause; Y93.89 Activity, other specified; Y99.9 Unspecified external cause status

== ENCOUNTER 2024-09-06 22:20 | Emergency (ER) | payer OTHER ==
[~2024-09-06] VITALS: Ht 175.3 cm; Wt 87.7 kg
[2024-09-06 22:30] VITALS: BP 136/79; TEMP 98.9; O2SAT 96
== END 2024-09-07 03:46 | disposition left against medical advice (07) ==
LOC: M ED 22:20
DX: Z53.21 Procedure and treatment not carried out due to patient leaving prior to being seen by health care provider (principal)

== ENCOUNTER 2024-09-09 08:41 | Emergency (ER) | payer OTHER ==
[~2024-09-09] VITALS: Ht 175.3 cm; Wt 95.6 kg
[2024-09-09 10:58] VITALS: BP 133/56; TEMP 97.7; O2SAT 100
== END 2024-09-09 11:31 | disposition home or self-care (01) ==
LOC: M ED 08:41
DX: Z48.02 Encounter for removal of sutures (principal)

== ENCOUNTER 2024-09-10 02:53 | Emergency (ER) | payer OTHER ==
[~2024-09-10] VITALS: Ht 175.3 cm; Wt 87.0 kg
[2024-09-10 02:57] VITALS: BP 126/71; TEMP 98.7; O2SAT 99
== END 2024-09-10 06:43 | disposition left against medical advice (07) ==
LOC: M ED 02:53
DX: Z53.21 Procedure and treatment not carried out due to patient leaving prior to being seen by health care provider (principal)

== ENCOUNTER 2024-09-10 06:52 | Emergency (ER) | payer OTHER ==
[~2024-09-10] VITALS: Ht 175.3 cm; Wt 88.1 kg
[2024-09-10 08:47] VITALS: BP 102/56; TEMP 96.3; O2SAT 100
== END 2024-09-10 10:22 | disposition home or self-care (01) ==
LOC: M ED 06:52
DX: M79.671 Pain in right foot (principal); M79.672 Pain in left foot; Z59.00 Homelessness unspecified; J30.1 Allergic rhinitis due to pollen; F17.200 Nicotine dependence, unspecified, uncomplicated

== ENCOUNTER 2024-09-30 21:12 | Emergency (ER) | payer OTHER ==
[~2024-09-30] VITALS: Ht 175.3 cm; Wt 89.2 kg
[2024-09-30 21:15] VITALS: BP 150/82; TEMP 97; O2SAT 99
[2024-09-30 22:03] LABS: APPEARANCE, URINE HAZY (CLEAR); BACTERIA, URINE AUTO 3+ (NEGATIVE); BILIRUBIN, URINE AUTO NEGATIVE (NEGATIVE); BLOOD, URINE BLOOD 2+ (NEGATIVE); CALCIUM OXALATE CRYSTALS LARGE; COLOR, URINE YELLOW (YELLOW); GLUCOSE, URINE (UA) AUTO NEGATIVE (NEGATIVE); KETONE, URINE AUTO NEGATIVE (NEGATIVE); LEUKOCYTE ESTERASE, URINE AUTO TRACE (NEGATIVE); MUCUS, URINE MODERATE (NEGATIVE); NITRITE, URINE AUTO POSITIVE (NEGATIVE); PROTEIN, URINE AUTO NEGATIVE (NEGATIVE); RBC, URINE AUTO 44 /HPF (0-3); SPECIFIC GRAVITY URINE AUTO 1.026 (1.002-1.035); SQUAMOUS EPITHELIAL CELL UR AU 1 /HPF (0-6); WBC, URINE AUTO 13 /HPF (0-3)
== END 2024-10-01 00:15 | disposition left against medical advice (07) ==
LOC: M ED 21:12
DX: Z53.21 Procedure and treatment not carried out due to patient leaving prior to being seen by health care provider (principal)

== ENCOUNTER 2025-04-24 08:16 | Emergency (ER) | payer OTHER ==
[~2025-04-24] VITALS: Ht 175.3 cm; Wt 81.5 kg
[2025-04-24 08:18] VITALS: BP 139/94; TEMP 98.1; O2SAT 100
== END 2025-04-24 09:08 | disposition left against medical advice (07) ==
LOC: M ED 08:16
DX: Z53.21 Procedure and treatment not carried out due to patient leaving prior to being seen by health care provider (principal)